=== PATIENT | male | born 1955 | race Caucasian/White ===

== ENCOUNTER 2019-05-04 23:19 | Emergency (ER) | payer OTHER ==
[2019-05-05] MEDS ORDERED: Sodium Chloride 0.9% 1000 ML 1,000 ML IV SCH (00:15)
[2019-05-05] MEDS ORDERED: Pepcid 20 MG VIAL IV ONE ×2 (00:15→00:21)
[2019-05-05] MEDS ORDERED: SUBLIMAZE 100 MCG/2 ML IV ONE (00:15)
[2019-05-05] MEDS ORDERED: Zofran 4 MG/2 ML VIAL IV ONE (00:15)
[2019-05-05] MEDS ORDERED: Sodium Chloride 0.9% 1000 ML 1,000 ML ONE (00:21)
[2019-05-05] MEDS ORDERED: SUBLIMAZE 100 MCG/2 ML ONE (00:21)
[2019-05-05] MEDS ORDERED: Zofran 4 MG/2 ML VIAL ONE (00:21)
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
[2019-05-05 00:36] LABS: BASOPHIL % 0.5 % (0.0-0.4); Basophil (Absolute #) 0.04 (0-0.4); Eosinophil % 1.2 % (0.00-5.0); Eosinophil (Absolute #) 0.11 (0-0.5); Granulocyte Absolute (ANC) 6.05 (1.4-6.9); Granulocytes % 68.1 % (36.0-66.0); Hematocrit 27.8 % (42-50); Hemoglobin 8.2 gm/dl (12.5-18.0); INR 1.21 (0.8-3.0); Lymphocyte (Absolute #) 1.71 (1.0-4.6); Lymphocytes % 19.3 % (24.0-44.0); Mean Cell Volume 68.8 fl (78-100); Mean Corpuscular Hgb Concent. 29.5 g/dl (32-36); Mean Platelet Volume 9.6 fl (6-9.5); Monocyte (Absolute #) 0.97 (0.0-1.3); Monocytes % 10.9 % (0.0-12.0); PROTIME 13.7 SECONDS (8.83-12.87); Platelet Count 514 K/mm3 (150-450); Red Blood Count 4.04 M/mm3 (4.1-5.6); Red Cell Distribution Width 15.8 % (11.5-14.0); White Blood Count 8.9 K/mm3 (4.0-10.5)
[2019-05-05 00:40] LABS: Mean Corpuscular Hemoglobin 20.2 pg (26-32)
[2019-05-05 00:49] LABS: ALBUMIN 4.2 g/dL (3.5-5.0); ALKALINE PHOSPHATASE 112 U/L (38-126); AMYLASE 77 U/L (30-110); ANION GAP 13.5 MEQ/L (5-15); BLOOD UREA NITROGEN 18 mg/dL (9-20); CHLORIDE 100 mmol/L (98-107); Calcium 9.5 mg/dL (8.4-10.2); Carbon Dioxide 27 mmol/L (22-30); Creatinine 1 0.83 mg/dL (0.66-1.25); Glucose 132 mg/dL (74-106); LIPASE 68 U/L (23-300); NT PRO BNP 35.8 pg/mL (0-900); Potassium 3.4 mmol/L (3.5-5.1); SGOT/AST 36 U/L (17-59); SGPT/ALT 18 U/L (0-50); SODIUM 136 mmol/L (137-145); Total Protein 7.4 g/dL (6.3-8.2)
[2019-05-05] MEDS ORDERED: GI COCKTAIL 45 ML (Maalox/Lidocaine) PO ONE (01:01)
[2019-05-05] MEDS ORDERED: MAALOX ES 30 ML UNIT DOSE ONE (01:36)
[2019-05-05] MEDS ORDERED: XYLOCAINE HCl Viscous ONE (01:36)
[2019-05-05 04:27] LABS: Slide Review 1 YES
[2019-05-05 05:09] VITALS: BP 106/68; PULSE 66; O2SAT 97
--- NOTE | 2019-05-05 12:18 | XRAY ---
Exam: AP portable chest film from 05/05/2019. Comparison: CT of the chest with IV contrast from 04/28/2019. Indication: Chest pain in 63-year-old male. Findings: The heart size and contour are normal. Mild atherosclerotic Chadron calcification within the aortic arch is seen. There is mild tortuosity of both the ascending and descending thoracic aorta. The remainder the reyes and mediastinal structures appears unremarkable. EKG leads are noted in place. The lungs are adequately inflated. No air space infiltrates, suspicious soft tissue lung nodularity, pneumothorax, or pleural fluid is seen. No acute osseous abnormality is seen. There is minimal convexity of the upper thoracic spine toward the left centered at T2-T3. Impression: 1. No pneumothorax or other evidence of acute cardiopulmonary disease is seen.
--- NOTE | 2019-05-05 14:28 | XRAY ---
Exam: CT of the chest with IV contrast per PE protocol from 05/05/2019. CTDI: 11.78 Comparison: AP portable chest film from 05/05/2019. Indication: 63-year-old male with elevated d-dimer, shortness of breath, epigastric abdominal pain. Technique: Post-IV contrast axial images were obtained through the chest using the PE protocol. Reconstructed coronal and sagittal images were created and reviewed. Findings: The pulmonary arteries enhance fairly well and reveal no filling defects to suggest clot/emboli. The proximal portion of the aortic arch measures about 3.5 cm in diameter and the distal portion of the aortic arch measures about 3.4 cm in diameter. This is slightly enlarged, but I believe this is unchanged.. No thoracic aortic dissection is seen. I see no abnormal mediastinal or perihilar lymphadenopathy. A portion of the thyroid gland is seen and appears unremarkable. No abnormal axillary lymphadenopathy is seen. The distal trachea and major central branching bronchi appear open. Minimal compression atelectatic changes are seen within the right posterior lung sulcus. I also see some minimal linear atelectasis at the medial left lung base. A tiny calcified granuloma is seen at the lateral left lung base within the mid axillary line representing no significant change. No abnormal soft tissue lung nodularity is seen. No infiltrates, pneumothorax, or pleural fluid is seen. There are multiple low-attenuation mass lesions throughout the right and left lobes the liver, most consistent with metastatic disease. The largest lesion is seen within the left lobe and measures about 11.7 cm in width. This is similar to the prior study from 04/28/2019. The skeleton reveals scattered vertebral endplate spurring within the spine. No acute fracture or aggressive bone lesion is seen. Impression: 1. I see no evidence of acute pulmonary embolism. 2. I believe there is slight enlargement of the aortic arch, as described above. This is unchanged on 04/28/2019. 3. No other acute cardiopulmonary process is seen. 4. Numerous low-attenuation liver lesions, likely due to hepatic metastasis. This also is unchanged.
== END 2019-05-05 05:00 | disposition home or self-care (01) ==
LOC: ED 23:19
DX: R10.11 Right upper quadrant pain (principal); C78.7 Secondary malignant neoplasm of liver and intrahepatic bile duct; R10.9 Unspecified abdominal pain; Z79.899 Other long term (current) drug therapy; Z79.891 Long term (current) use of opiate analgesic
CPT/HCPCS: 36000; 36415; 71045; 71260; 80053; 82150; 83605; 83690; 83880; 84484; 85025; 85379; 85610; 93005; 96360; 96374; 96375; 99284; J2405; J3010; A9270-GY

== ENCOUNTER 2022-10-25 11:39 | Emergency (ER) | payer MEDICARE, OTHER ==
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
[2022-10-25] MEDS ORDERED: Sodium Chloride 0.9% 1000 ML 1,000 ML IV STA ×2 (12:58→14:35)
[2022-10-25] MEDS ORDERED: Sodium Chloride 0.9% 1000 ML 1,000 ML ONE ×2 (13:16→14:39)
[2022-10-25 13:22] LABS: Absolute Neutrophil Ct (ANC) 8.38 x10^3/uL (1.4-6.9); Basophil (Absolute #) 0.02 x10^3/uL (0-0.4); Eosinophil % 0.1 % (0.00-5.0); Eosinophil (Absolute #) 0.01 x10^3/uL (0-0.5); Hematocrit 36.6 % (42-50); Hemoglobin 11.7 g/dL (12.5-18.0); Lymphocyte (Absolute #) 0.32 x10^3/uL (1.0-4.6); Lymphocytes % 3.3 % (24.0-44.0); Mean Cell Volume 87.6 fL (78-100); Monocyte (Absolute #) 0.84 x10^3/uL (0.0-1.3); Monocytes % 8.7 % (0.0-12.0); Neutrophil % 86.8 % (36.0-66.0); Platelet Count 398 x10^3/uL (150-450); Red Blood Count 4.18 x10^6/uL (4.1-5.6); Red Cell Distribution Width 15.9 % (11.5-14.0); White Blood Count 9.7 x10^3/uL (4.0-10.5)
[2022-10-25 13:37] LABS: ALBUMIN 3.4 g/dL (3.5-5.0); ALKALINE PHOSPHATASE 642 U/L (38-126); AMYLASE 59 U/L (30-110); ANION GAP 12.3 MEQ/L (5-15); BLOOD UREA NITROGEN 25 mg/dL (9-20); CHLORIDE 95 mmol/L (98-107); Calcium 8.8 mg/dL (8.4-10.2); Carbon Dioxide 27 mmol/L (22-30); Creatinine 1 0.55 mg/dL (0.66-1.25); EST GLOMERULAR FILTRATION RATE > 60.0 ML/MIN; Glucose 137 mg/dL (74-106); LIPASE 30 U/L (23-300); Potassium 4.3 mmol/L (3.5-5.1); SGOT/AST 88 U/L (17-59); SGPT/ALT 51 U/L (0-50); SODIUM 130 mmol/L (137-145); Total Protein 7.3 g/dL (6.3-8.2)
[2022-10-25] MEDS ORDERED: Zofran 4 MG/2 ML VIAL IV ONE (13:44)
[2022-10-25] MEDS ORDERED: Hydromorphone 1 mg/ml Injection IV ONE ×2 (13:44→15:44)
[2022-10-25] MEDS ORDERED: Zofran 4 MG/2 ML VIAL ONE (13:54)
[2022-10-25] MEDS ORDERED: Hydromorphone 1 mg/ml Injection ONE ×2 (13:55→16:16)
[2022-10-25 14:47] LABS: Slide Review 1 YES
[2022-10-25 18:00] LABS: Appearance Clear (Clear); Bacteria None Seen /HPF (None Seen); Bilirubin Small (Negative); Blood Negative (Negative); Epithelial Cells Rare /HPF (None Seen); Glucose, Urine Negative (Negative); Ketones Trace (Negative); Leukocyte Esterase Negative (Negative); Nitrite Negative (Negative); Protein,Urine Dip Trace (Negative); RBC 0-2 /HPF (0-5); Specific Gravity 1.025 (1.005-1.030); WBC 0-2 /HPF (0-5)
[2022-10-25 18:02] LABS: ADD URINE CULTURE? NO (NO)
[2022-10-25 18:20] VITALS: BP 94/65; PULSE 78; O2SAT 94
== END 2022-10-25 18:27 | disposition home or self-care (01) ==
LOC: ED 11:39
DX: R11.0 Nausea (principal); R10.11 Right upper quadrant pain; Z79.52 Long term (current) use of systemic steroids; Z28.310 Unvaccinated for COVID-19
CPT/HCPCS: 36000; 36415; 80053; 81001; 82150; 83690; 85025; 96360; 96361; 96374; 96375; 96376; 99284; J1170; J2405